=== PATIENT | male | born 1975 | race Caucasian/White ===

== ENCOUNTER 2018-10-13 12:09 | Emergency (ER) | payer SELFPAY ==
[2018-10-13] MEDS ORDERED: IBUPROFEN 600 MG TABLET PO ONE (12:18)
[2018-10-13] MEDS ORDERED: AMOXICILLIN 500MG CAPSULE PO ONE (12:18)
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
== END 2018-10-13 12:45 | disposition home or self-care (01) ==
LOC: ER 12:09
DX: K04.7 Periapical abscess without sinus (principal); Z87.891 Personal history of nicotine dependence
CPT/HCPCS: 41800; 99283

== ENCOUNTER 2019-05-29 11:13 | Emergency (ER) | payer SELFPAY ==
[2019-05-29] MEDS ORDERED: AMOXICILLIN 500MG CAPSULE PO ONE (11:29)
[2019-05-29] MEDS ORDERED: IBUPROFEN 600 MG TABLET PO ONE (11:29)
--- NOTE | 2019-05-29 11:35 | Emergency Department Record ---
History of Present Illness - General Chief complaint: Dental Stated complaint: ORAL INFECTION Time Seen by Provider: 05/29/19 11:26 Source: Patient Mode of Arrival: Ambulatory Limitations: No limitations - History of Present Illness Initial comments: 43 yo male presents with tenderness and swelling of the right lower maxillary area. The patient has some chronic dental decay. No pus. No fevers. The swelling started overnight. No eye pain or involvement. No neck or throat pain. MD complaint: Tooth pain Onset/Timin -: Days(s) Location: Tooth # Severity: Moderate Severity scale (1-10): 7 Quality: Aching Consistency: Constant Improves with: None Worsens with: None Context- Dental: History of dental caries - Related Data Previous Rx's Medication Instructions Recorded Amoxicillin 500Mg Capsule [Amoxil] 500 mg PO TID #30 tab 05/29/19 Ibuprofen [Motrin] 800 mg PO Q8H PRN #20 tab 05/29/19 Allergies Allergy/AdvReac Type Severity Reaction Status Date / Time morphine Allergy Intermediate body Verified 10/13/18 12:15 swelling Travel Screening - Travel/Exposure Within Last 30 Days Have you traveled within the last 30 days?: No - Travel/Exposure Within Last Year Have you traveled outside the [place] in the last year?: No - Additonal Travel Details Have you been exposed to anyone with a communicable illness?: No Review of Systems Constitutional: Denies: Chills, Fever, Malaise, Weakness Eyes: Denies: Eye discharge, Eye pain, Photophobia, Vision change ENT: Reports: As per HPI, Dental pain. Denies: Congestion, Ear pain, Epistaxis, Hearing loss, Throat pain Respiratory: Denies: Cough Cardiovascular: Denies: Chest pain, Syncope Endocrine: Denies: Fatigue Gastrointestinal: Denies: Abdominal pain, Diarrhea, Nausea, Vomiting Genitourinary: Denies: Dysuria Musculoskeletal: Denies: Arthralgia, Back pain, Myalgia Skin: Denies: Bruising, Change in color, Rash Neurological: Denies: Headache, Numbness, Weakness Psychiatric: Denies: Anxiety Hematological/Lymphatic: Denies: Easy bleeding, Easy bruising Past Medical History - SOCIAL HISTORY Smoking Status: Former smoker Alcohol Use: None Drug Use: Occasional Drug Use Detail:: Marijuana - RESPIRATORY Hx Respiratory Disorders: No - CARDIOVASCULAR Hx Cardio Disorders: No - NEURO Hx Neuro Disorders: No - GI Hx GI Disorders: No - Hx Genitourinary Disorders: No - ENDOCRINE Hx Endocrine Disorders: No - MUSCULOSKELETAL Hx Musculoskeletal Disorders: No - PSYCH Hx Psych Problems: No - HEMATOLOGY/ONCOLOGY Hx Hematology/Oncology Disorders: No Family Medical History Any Significant Family History?: No Physical Exam - General General Appearance: Alert, Oriented x3, Cooperative, No acute distress Limitations: No limitations - Head Head exam: Atraumatic, Normal inspection Image of Face/Head: 1 - mild tenderness, minimal erythema - Eye Eye exam: Normal appearance, PERRL. negative: Periorbital swelling, Periorbital tenderness - ENT ENT exam: Mucous membranes moist, Normal external ear exam, TM's normal bilaterally. negative: Mucous membranes dry, Normal orophraynx Ear exam: Normal external inspection Nasal Exam: Normal inspection Mouth exam: Normal external inspection, Tongue normal. negative: Laceration, Muffled voice, Tongue elevation, Trismus Teeth exam: Dental caries. negative: Normal inspection Image of Mouth/Teeth: 1 - eroded teeth, mild gum swelling, no pus, no abscess - Neck Neck exam: Full ROM. negative: Lymphadenopathy, Meningismus, Tenderness - Respiratory Respiratory exam: Normal lung sounds bilaterally. negative: Respiratory distress - Cardiovascular Cardiovascular Exam: Regular rate, Normal rhythm, Normal heart sounds - Neurological Neurological exam: Alert, Oriented X3 - Psychiatric Psychiatric exam: Normal affect, Normal mood - Skin Skin exam: Dry, Intact, Normal color, Warm Course Vital Signs 05/29/19 11:15 Pulse Rate 86 Respiratory 16 Rate Blood Pressure 151/93 Pulse Ox 99 - Reevaluation(s) Reevaluation #1: 05/29/19 11:59 Very mild findings on examination He was started on oral antibiotics with home care and follow up instructions We discussed reasons to return immediately for a recheck as well Disposition Disposition: Discharge Clinical Impression: Dental infection Disposition: Home, Self-Care Condition: (1) Good Instructions: Dental Abscess (ED) Additional Instructions: Call for dental follow up Return if worse, fever, or any other concerns Take the antibiotic as directed Prescriptions: Amoxicillin 500Mg Capsule [Amoxil] 500 mg PO TID #30 tab Ibuprofen [Motrin] 800 mg PO Q8H PRN #20 tab PRN Reason: Pain - Mild (1-4) Forms: Patient Portal Access Time of Disposition: 11:33 Quality - Quality Measures Quality Measures: N/A - Blood Pressure Screening Does Patient Have Any of the Following: No Blood Pressure Classification: Hypertensive Reading Systolic Measurement: 136 Diastolic Measurement: 96 Screening for High Blood Pressure: < Pre-Hypertensive BP, F/U Documented > [G8950] Pre-Hypertensive Follow-up Interventions: Referral to alternative/primary care provider.
== END 2019-05-29 11:46 | disposition home or self-care (01) ==
LOC: ER 11:13
DX: K04.7 Periapical abscess without sinus (principal)
CPT/HCPCS: 99283

== ENCOUNTER 2019-10-29 11:25 | Emergency (ER) | payer SELFPAY ==
--- NOTE | 2019-10-29 12:22 | Emergency Department Record ---
History of Present Illness - General Chief complaint: Nausea, Vomiting, Diarrhea Stated complaint: NAUSEA Time Seen by Provider: 10/29/19 12:17 Source: Patient Mode of Arrival: Ambulatory Limitations: No limitations - History of Present Illness Initial comments: Pt to ED from work with complaint of diarrhea with nausea, no vomiting. No fever, no AP. Daughter with vomiting and diarrhea at home. Pt able to tolerate liquids but decreased appetite. No recent travel, change in diet or meds. Onset/Timin -: Days(s) Description of Diarrhea: Water Associated Abdominal Pain: No Radiation: None Consistency: Constant, Intermittent Improves with: None Worsens with: None Associated Symptoms: Nausea/vomiting - Related Data Previous Rx's Medication Instructions Recorded Ondansetron HCl [Zofran] 4 mg PO Q6HR PRN #20 tablet 10/29/19 Allergies Allergy/AdvReac Type Severity Reaction Status Date / Time morphine Allergy Intermediate body Verified 10/13/18 12:15 swelling Travel Screening - Travel/Exposure Within Last 30 Days Have you traveled within the last 30 days?: No Review of Systems Constitutional: Denies: Chills, Fever, Weakness Eyes: Denies: Eye discharge, Photophobia ENT: Denies: Congestion, Throat pain Respiratory: Denies: Cough Cardiovascular: Denies: Chest pain, Syncope Endocrine: Denies: Fatigue Gastrointestinal: Reports: As per HPI, Diarrhea, Nausea. Denies: Abdominal pain, Vomiting Genitourinary: Denies: Dysuria Musculoskeletal: Denies: Arthralgia, Back pain Skin: Denies: Bruising, Rash Neurological: Denies: Headache, Tingling Psychiatric: Denies: Anxiety Hematological/Lymphatic: Denies: Anemia Past Medical History - SOCIAL HISTORY Smoking Status: Former smoker - RESPIRATORY Hx Respiratory Disorders: No - CARDIOVASCULAR Hx Cardio Disorders: No - NEURO Hx Neuro Disorders: No - GI Hx GI Disorders: No - Hx Genitourinary Disorders: No - ENDOCRINE Hx Endocrine Disorders: No - MUSCULOSKELETAL Hx Musculoskeletal Disorders: No - PSYCH Hx Psych Problems: No - HEMATOLOGY/ONCOLOGY Hx Hematology/Oncology Disorders: No Family Medical History Any Significant Family History?: No Physical Exam - General General Appearance: Alert, Oriented x3, Cooperative, No acute distress - Head Head exam: Atraumatic, Normocephalic - Eye Eye exam: Normal appearance, PERRL - ENT ENT exam: Mucous membranes moist Nasal Exam: Normal inspection Mouth exam: Normal external inspection - Neck Neck exam: Normal inspection, Full ROM. negative: Lymphadenopathy - Respiratory Respiratory exam: Normal lung sounds bilaterally. negative: Respiratory distress, Rhonchi, Wheezes - Cardiovascular Cardiovascular Exam: Regular rate, Normal rhythm. negative: Tachycardia - GI/Abdominal GI/Abdominal exam: Soft, Normal bowel sounds. negative: Distended, Guarding, Tenderness - Extremities Extremities exam: Normal inspection - Back Back exam: Reports: Normal inspection - Neurological Neurological exam: Alert, Normal gait, Oriented X3 - Psychiatric Psychiatric exam: Normal affect, Normal mood - Skin Skin exam: Normal color. negative: Pallor, Rash Course Vital Signs 10/29/19 11:38 Temperature 97.8 F Pulse Rate [ 94 H Pulse Ox Probe] Respiratory 18 Rate Blood Pressure 129/93 [Left Arm] Pulse Ox 97 - Reevaluation(s) Reevaluation #1: 10/29/19 12:25 seen and exam. Non toxic, no ill appearing. Discussed plan and pt agrees. Disposition Disposition: Discharge Clinical Impression: Nausea Diarrhea Qualifiers: Diarrhea type: unspecified type Qualified Code(s): R19.7 - Diarrhea, unspecified Disposition: Home, Self-Care Condition: (1) Good Instructions: Acute Nausea and Vomiting (ED), Acute Diarrhea (ED) Additional Instructions: Clear liquid diet for 24 hours. Family Doctor recheck in 2 days Take meds as instructed. Return as needed to the ED. Prescriptions: Ondansetron HCl [Zofran] 4 mg PO Q6HR PRN #20 tablet PRN Reason: Nausea Forms: Patient Portal Access Time of Disposition: 12:21 Quality - Quality Measures Quality Measures: N/A - Blood Pressure Screening Does Patient Have Any of the Following: No Blood Pressure Classification: Hypertensive Reading Systolic Measurement: 129 Diastolic Measurement: 93 Screening for High Blood Pressure: < Pre-Hypertensive BP, F/U Documented > [G8950] Pre-Hypertensive Follow-up Interventions: Follow-up with rescreen every year.
== END 2019-10-29 12:34 | disposition home or self-care (01) ==
LOC: ER 11:25
DX: R19.7 Diarrhea, unspecified (principal); R11.0 Nausea; Z87.891 Personal history of nicotine dependence
CPT/HCPCS: 99283

== ENCOUNTER 2019-11-16 13:13 | Emergency (ER) | payer SELFPAY ==
--- NOTE | 2019-11-16 13:48 | Emergency Department Record ---
History of Present Illness - General Chief complaint: ENT Stated complaint: RT EAR PAIN Time Seen by Provider: 11/16/19 13:31 Source: Patient Mode of Arrival: Ambulatory Limitations: No limitations - History of Present Illness Initial comments: pt has pain in his r ear and r jaw and neck. he recently started wearing earplugs at work. he also recently had a rash on his abdomen which is getting better. he states that there is a possibility of fiberglass exposure. he also c/o 2 bad teeth on the right w swelling MD complaint: Ear pain, Tooth pain Onset/Timin -: Days(s) Location: R ear Severity: Mild Severity scale (1-10): 3 Quality: Aching Consistency: Constant Improves with: None Worsens with: None Context- Dental: History of dental caries, Poor dental care, Other Context- Ear: Other Associated Symptoms: Gum swelling, Toothache, Other - Related Data Previous Rx's Medication Instructions Recorded Neomycin/Polymyxin B Sulf/Hc 2 drop AFFEAR QID #10 ml 11/16/19 [Cortisporin Otic] Penicillin V Potassium 500 mg PO Q8HR #21 tablet 11/16/19 Allergies Allergy/AdvReac Type Severity Reaction Status Date / Time morphine Allergy Intermediate body Verified 10/13/18 12:15 swelling Travel Screening - Travel/Exposure Within Last 30 Days Have you traveled within the last 30 days?: No Review of Systems Reviewed: No additional complaints except as noted below Constitutional: Reports: As per HPI. Denies: Chills, Fever, Malaise, Night sweats, Weakness, Weight change Eyes: Reports: As per HPI. Denies: Eye discharge, Eye pain, Photophobia, Vision change ENT: Reports: As per HPI, Dental pain, Ear pain. Denies: Congestion, Epistaxis, Hearing loss, Throat pain Respiratory: Reports: As per HPI. Denies: Cough, Dyspnea, Hemoptysis, Stridor, Wheezes Cardiovascular: Reports: As per HPI. Denies: Arrhythmia, Chest pain, Dyspnea on exertion, Edema, Murmurs, Orthopnea, Palpitations, Paroxysmal nocturnal dyspnea, Rheumatic Fever, Syncope Endocrine: Reports: As per HPI. Denies: Fatigue, Heat or cold intolerance, Polydipsia, Polyuria Gastrointestinal: Reports: As per HPI. Denies: Abdominal pain, Constipation, Diarrhea, Hematemesis, Hematochezia, Melena, Nausea, Vomiting Genitourinary: Reports: As per HPI. Denies: Dysuria, Frequency, Hematuria, Incontinence, Retention, Testicular pain, Testicular mass, Urgency Musculoskeletal: Reports: As per HPI. Denies: Arthralgia, Back pain, Gout, Kym nt swelling, Myalgia, Neck pain Skin: Reports: As per HPI. Denies: Bruising, Change in color, Change in hair/nails, Lesions, Pruritus, Rash Neurological: Reports: As per HPI. Denies: Abnormal gait, Confusion, Headache, Numbness, Paresthesias, Seizure, Tingling, Tremors, Vertigo, Weakness Psychiatric: Reports: As per HPI. Denies: Anxiety, Auditory hallucinations, Depression, Homicidal thoughts, Suicidal thoughts, Visual hallucinations Hematological/Lymphatic: Reports: As per HPI. Denies: Anemia, Blood Clots, Easy bleeding, Easy bruising, Swollen glands Past Medical History - SOCIAL HISTORY Smoking Status: Former smoker - RESPIRATORY Hx Respiratory Disorders: No - CARDIOVASCULAR Hx Cardio Disorders: No - NEURO Hx Neuro Disorders: No - GI Hx GI Disorders: No - Hx Genitourinary Disorders: No - ENDOCRINE Hx Endocrine Disorders: No - MUSCULOSKELETAL Hx Musculoskeletal Disorders: No - PSYCH Hx Psych Problems: No - HEMATOLOGY/ONCOLOGY Hx Hematology/Oncology Disorders: No Family Medical History Any Significant Family History?: No Physical Exam - General General Appearance: Alert, Oriented x3, Cooperative, Mild distress - Head Head exam: Normal inspection - Eye Eye exam: Normal appearance, PERRL, EOMI Pupils: Normal accommodation - ENT ENT exam: Normal exam, Mucous membranes moist, Normal external ear exam, Normal orophraynx, TM's normal bilaterally Ear exam: External canal tenderness, Other (erythema of r canal) Nasal Exam: Normal inspection. negative: Discharge, Sinus tenderness Mouth exam: Normal external inspection, Tongue normal Teeth exam: Dental caries, Dental tenderness # Throat exam: Normal inspection. negative: Tonsillar erythema, Tonsillar exudate - Neck Neck exam: Full ROM, Lymphadenopathy. negative: Tenderness - Respiratory Respiratory exam: Normal lung sounds bilaterally. negative: Respiratory distress - Cardiovascular Cardiovascular Exam: Regular rate, Normal rhythm, Normal heart sounds - GI/Abdominal GI/Abdominal exam: Soft, Normal bowel sounds. negative: Tenderness - Rectal Rectal exam: Deferred - exam: Deferred - Extremities Extremities exam: Normal inspection, Full ROM, Normal capillary refill. negative: Tenderness - Back Back exam: Reports: Normal inspection, Full ROM. Denies: Muscle spasm, Rash noted, Tenderness - Neurological Neurological exam: Alert, CN II-XII intact, Normal gait, Oriented X3 - Psychiatric Psychiatric exam: Normal affect, Normal mood - Skin Skin exam: Dry, Intact, Normal color, Warm Course Vital Signs 11/16/19 13:20 Temperature 98.0 F Pulse Rate 92 H Respiratory 20 Rate Blood Pressure 131/103 Pulse Ox 99 Disposition Disposition: Discharge Clinical Impression: Dental abscess Otitis externa Qualifiers: Otitis externa type: unspecified type Chronicity: acute Laterality: right Qualified Code(s): H60.501 - Unspecified acute noninfective otitis externa, right ear Disposition: Home, Self-Care Condition: (1) Good Instructions: Otitis Externa (ED), Dental Abscess (ED) Additional Instructions: follow up with family doctor and with dentist wang. return sooner if worse. avoid ear plugs for 1 wk Prescriptions: Penicillin V Potassium 500 mg PO Q8HR #21 tablet Neomycin/Polymyxin B Sulf/Hc [Cortisporin Otic] 2 drop AFFEAR QID #10 ml Quality - Quality Measures Quality Measures: N/A - Blood Pressure Screening Does Patient Have Any of the Following: No Blood Pressure Classification: Hypertensive Reading Systolic Measurement: 131 Diastolic Measurement: 103 Screening for High Blood Pressure: < Pre-Hypertensive BP, F/U Documented > [G8950] Pre-Hypertensive Follow-up Interventions: Follow-up with rescreen every year.
== END 2019-11-16 13:58 | disposition home or self-care (01) ==
LOC: ER 13:13
DX: H60.501 Unspecified acute noninfective otitis externa, right ear (principal); F17.210 Nicotine dependence, cigarettes, uncomplicated; K04.7 Periapical abscess without sinus
CPT/HCPCS: 99283

== ENCOUNTER 2019-11-29 16:15 | Emergency (ER) | payer SELFPAY ==
--- NOTE | 2019-11-29 16:27 | Emergency Department Record ---
History of Present Illness - General Chief complaint: Abscess Stated complaint: SORE ON ABD Time Seen by Provider: 11/29/19 16:21 Source: Patient Mode of Arrival: Ambulatory Limitations: No limitations - History of Present Illness Initial comments: 44 yo male presents with an itchy rash on the right mid abdomen. The onset was about 10 days ago. No pain. It only itches. It has not changed in size. No fever. No blisters or oozing. No spreading. No other areas on the body with similar findings. No cough, shortness of breath, no hives. MD complaint: Rash Onset/Timin -: Days(s) Quality: Other (itches) Improves with: None Worsens with: None Associated symptoms: Denies other symptoms Treatments Prior to Arrival: None - Related Data Previous Rx's Medication Instructions Recorded Neomycin/Polymyxin B Sulf/Hc 2 drop AFFEAR QID #10 ml 11/16/19 [Cortisporin Otic] Penicillin V Potassium 500 mg PO Q8HR #21 tablet 11/16/19 Clotrimazole/Betamethasone Dip 45 gm TP BID #1 cream..g. 11/29/19 [Clotrimazole-Betamethasone Crm] Prednisone [Prednisone 20Mg] 20 mg PO BID #10 tab 11/29/19 Allergies Allergy/AdvReac Type Severity Reaction Status Date / Time morphine Allergy Intermediate body Verified 11/29/19 16:18 swelling Travel/Exposure Screening - Travel/Exposure Within Last 30 Days Have you traveled within the last 30 days?: No - Additonal Travel/Exposure Details Have you been exposed to anyone with a communicable illness?: No Review of Systems Constitutional: Denies: Chills, Fever, Malaise, Weakness Eyes: Denies: Eye discharge ENT: Denies: Congestion Respiratory: Denies: Cough Cardiovascular: Denies: Chest pain Endocrine: Denies: Fatigue Gastrointestinal: Denies: Abdominal pain, Diarrhea, Nausea, Vomiting Genitourinary: Denies: Dysuria, Frequency, Hematuria Musculoskeletal: Denies: Arthralgia, Back pain, Myalgia Skin: Reports: Change in color, Rash. Denies: Bruising Neurological: Denies: Numbness, Weakness Psychiatric: Denies: Anxiety Hematological/Lymphatic: Denies: Easy bruising Past Medical History - SOCIAL HISTORY Smoking Status: Former smoker - RESPIRATORY Hx Respiratory Disorders: No - CARDIOVASCULAR Hx Cardio Disorders: No - NEURO Hx Neuro Disorders: No - GI Hx GI Disorders: No - Hx Genitourinary Disorders: No - ENDOCRINE Hx Endocrine Disorders: No - MUSCULOSKELETAL Hx Musculoskeletal Disorders: No - PSYCH Hx Psych Problems: No - HEMATOLOGY/ONCOLOGY Hx Hematology/Oncology Disorders: No Physical Exam - General General Appearance: Alert, Oriented x3, Cooperative, No acute distress Limitations: No limitations - Head Head exam: Atraumatic - Eye Eye exam: Normal appearance - ENT ENT exam: Normal exam Ear exam: Normal external inspection Nasal Exam: Normal inspection Mouth exam: Normal external inspection - Neck Neck exam: Normal inspection. negative: Lymphadenopathy - Respiratory Respiratory exam: Normal lung sounds bilaterally. negative: Rhonchi, Stridor, Wheezes - Cardiovascular Cardiovascular Exam: Regular rate, Normal rhythm, Normal heart sounds - GI/Abdominal GI/Abdominal exam: Soft. negative: Tenderness - Rectal Rectal exam: Deferred - exam: Deferred - Back Back exam: Reports: Normal inspection - Neurological Neurological exam: Alert, Oriented X3 - Psychiatric Psychiatric exam: Normal affect, Normal mood - Skin Skin exam: Rash. negative: Urticaria, Vesicles Course - Reevaluation(s) Reevaluation #1: The examination is consistent with local contact dermatitis The rash itches. He will be treated with a brief course of oral antibiotics and topical steroid with anti-fungal in case it is tinea although not typical 11/29/19 18:45 Disposition Disposition: Discharge Clinical Impression: Rash Disposition: Home, Self-Care Condition: (1) Good Instructions: Dermatitis (ED) Additional Instructions: Call your doctor for the next available follow up appointment Return to the ER for a recheck immediately if worse, any new concerns or questions Take the prescriptions provided as directed Prescriptions: Clotrimazole/Betamethasone Dip [Clotrimazole-Betamethasone Crm] 45 gm TP BID #1 cream..g. Prednisone [Prednisone 20Mg] 20 mg PO BID #10 tab Forms: Patient Portal Access Time of Disposition: 16:28 Quality - Quality Measures Quality Measures: N/A - Blood Pressure Screening Does Patient Have Any of the Following: No Blood Pressure Classification: Hypertensive Reading Systolic Measurement: 140 Diastolic Measurement: 79 Screening for High Blood Pressure: < Pre-Hypertensive BP, F/U Documented > [G8950] Pre-Hypertensive Follow-up Interventions: Referral to alternative/primary care provider.
== END 2019-11-29 16:37 | disposition home or self-care (01) ==
LOC: ER 16:15
DX: L25.9 Unspecified contact dermatitis, unspecified cause (principal); Z87.891 Personal history of nicotine dependence
CPT/HCPCS: 99283